=== PATIENT | female | born 1965 | race Caucasian/White ===

== ENCOUNTER 2018-04-25 08:36 | Day surgery (SDC) | payer OTHER ==
[~2018-04-25] VITALS: Ht 157.5 cm; Wt 64.5 kg
--- NOTE | ~2018-04-25 | OP ---
PATIENT NAME: JASMIN JC MEDICAL RECORD: [id number] :61 LOCATION:[facility] ADMISSION DATE: SURGEON: UZIEL MIRAMONTES DO DATE OF OPERATION: 04/25/2018 PROCEDURE: Colonoscopy with biopsy and polypectomy. INDICATIONS FOR PROCEDURE: Screening for colorectal cancer. SCOPE: Olympus video pediatric colonoscope. MEDICATIONS: Propofol 430 mg IV per anesthesia. WITHDRAWAL TIME: 17 minutes. ESTIMATED BLOOD LOSS: Minimal. COMPLICATIONS: None. FINDINGS: Informed consent was given. The patient was made comfortable with the above medication. After reaching an adequate level of sedation by slow IV push, the patient was placed on her left side. A digital rectal examination was performed and was normal. The endoscope was then advanced under direct visualization through the rectum to the cecum, confirmed by the presence of the appendiceal orifice and ileocecal valve. The endoscope was slowly withdrawn and the mucosa was carefully examined. The prep quality was excellent. There was 1 polyp visualized on today's examination. It was a benign-appearing sessile polyp, which measured approximately 8-9 mm in diameter. It was removed using endoscopic mucosal resection technique with an injection of saline under the base of the polyp to lift it off the wall of the colon. A snare was then used to remove this in one piece. The polyp was completely retrieved. The base of the polyp site was further cauterized using the snare tip. There were a few diverticula visualized in the cecum and ascending colon. There was no evidence of diverticulitis. Retroflexion was performed in the rectum. On the retroflexed view, there was a site which was questionable. A single cold forceps biopsy was taken to evaluate if this is slightly hypertrophied anal papilla or if there are condylomatous changes present. This was located at 9 o'clock. Also, on a retroflexed view, there were grade I internal hemorrhoids without bleeding. The endoscope was then unretroflexed and withdrawn from the patient. The patient tolerated the procedure well, and there were no complications. IMPRESSION: 1. A single benign-appearing sessile polyp located in the descending colon, which was removed using EMR technique. 2. Biopsy taken from an anal papilla to rule out condylomatous changes. 3. Diverticulosis of the cecum and ascending colon. 4. Internal hemorrhoids without bleeding. PLAN AND RECOMMENDATIONS: 1. Discharge home when recovery parameters are met. 2. Follow up biopsy specimen results. 3. High-fiber diet. 4. Continue current medications. 5. Recall colonoscopy in 3-5 years depending on pathology of polyp removed OPERATIVE REPORT [id number] JASMIN JC today. 6. Maintain routine followup with Dr. Bridges. Because of the polyp removed on today's examination, the patient will have a repeat protamine infusion in 3 days' time. TRANSINT:[id number] Voice Confirmation ID: [id number] DOCUMENT ID: [id number] UZIEL MIRAMONTES DO at 1551 CC: [id number] DICTATION DATE: 04/25/18 1114 REMOTE BROADCAST TECHNICIAN: 04/25/18 [id number] [facility] 04/25/18 [facility] [address] [place] [address]
[2018-04-25 09:05] LABS: HEMATOCRIT 42.4 % (36.0-48.0); HEMOGLOBIN 14.5 g/dL (12-16); MCH 30.5 pg (26.0-34.0); MCHC 34.2 g/dL (31.0-37.0); MCV 89.1 fL (80.0-100.0); MEAN PLATELET VOLUME 10.2 fL (7.4-10.4); RBC 4.76 10x6/uL (4.00-5.40); RDW 12.8 % (11.5-14.5)
[2018-04-25 09:36] VITALS: BP 140/79; Ht 157.5 cm; Wt 64.5 kg
[2018-04-25 10:00] LABS: APTT 42.8 SECONDS (22.8-39.4); INR 1.84 (0.85-1.17); PROTIME 20.7 SECONDS (11.6-15.0)
== END 2018-04-25 12:25 | disposition home or self-care (01) ==
LOC: D.OPS 08:36
PROVIDERS: Anesthesiology
DX: Z12.11 Encounter for screening for malignant neoplasm of colon (principal); K63.5 Polyp of colon; K57.90 Diverticulosis of intestine, part unspecified, without perforation or abscess without bleeding